=== PATIENT | male | born 1970 | race Hispanic/Latino ===

== ENCOUNTER 2017-11-06 20:52 | Emergency (ER) | payer BC | END 2017-11-06 22:23 | disposition home or self-care (01) | LOC: SCSER 20:52 | DX: G50.0 Trigeminal neuralgia (principal); K21.9 Gastro-esophageal reflux disease without esophagitis; Z79.899 Other long term (current) drug therapy | CPT/HCPCS: 99283 ==

== ENCOUNTER 2017-11-08 05:27 | Emergency (ER) | payer BC ==
[2017-11-08] MEDS ORDERED: Ondansetron HCl/PF 4 MG/2 ML Vial ONE (05:47)
[2017-11-08] MEDS ORDERED: Ketorolac Tromethamine 30 MG/ML VIAL ONE (06:17)
[2017-11-08] MEDS ORDERED: Morphine 5 MG/ML SYRINGE ONE (06:17)
[2017-11-08 06:19] LABS: ALT (SGPT) 78 U/L (8-55); AST (SGOT) 38 U/L (5-34); Albumin 4.6 g/dL (3.5-5.0); Alkaline Phosphatase 100 U/L (40-150); Anion Gap 18 mmol/L (10-20); BUN (Urea Nitrogen) 13 mg/dL (8.9-20.6); Bilirubin, Total 0.5 mg/dL (0.2-1.2); Calc. Creatinine Clearance 0 mL/min (70-130); Calcium 9.6 mg/dL (7.8-10.44); Carbon Dioxide 19 mmol/L (22-29); Chloride 100 mmol/L (98-107); Estimated GFR-MDRD 80; Globulin 3.5 g/dL (2.4-3.5); Glucose 131 mg/dL (70-105); Potassium 3.6 mmol/L (3.5-5.1); Protein, Total 8.1 g/dL (6.0-8.3); Sodium 133 mmol/L (136-145)
[2017-11-08 06:21] LABS: #Basophils 0.3 thou/uL (0.0-0.2); #Eosinphils 0.2 thou/uL (0.0-0.7); #Lymphocytes 4.3 thou/uL (1.20-3.40); #Neutrophils 6.4 thou/uL (1.40-6.50); %Basophils 2.1 % (0.0-1.0); %Eosinophils 1.4 % (0.0-10.0); %Lymphocytes 35.5 % (21.0-51.0); %Monocytes 8.3 % (0.0-10.0); %Neutrophils 52.7 % (42.0-75.0); Hemoglobin 17.3 g/dL (14.0-18.0); Mean Corpuscular HGB CONC 36.2 g/dL (32.0-36.0); Mean Corpuscular Hemoglobin 32.8 pg (27.0-31.0); Mean Corpuscular Volume 90.6 fl (80.0-94.0); Mean Platelet Volume 7.1 fL (7.4-10.4); Platelet Count 405 thou/uL (130-400); RBC Distribution Width 11.4 % (11.5-14.5); Red Blood Cell (RBC) Count 5.29 mill/uL (4.70-6.10); White Blood Cell (WBC) Count 12.1 thou/uL (4.8-10.8)
[2017-11-08] MEDS ORDERED: Gabapentin 100 MG CAP ONE (06:36)
--- NOTE | 2017-11-08 08:28 | CT ---
PRELIMINARY REPORT/[facility]/EMERGENTY AFTER-HOURS PROCEDURE CT Head Without Intravenous Contrast EXAM DATE/TIME: Exam ordered 11/08/2017 6:42 AM CLINICAL HISTORY: 47 years old, male; Pain; Other: Facial pain/drooping; Patient HX: Patient with history of trigeminal neuralgia with significant left sided facial pain that started yesterday afternoon and has remained constant. Patient has known trigeminal neuralgia with frequent flares over the past year. Patient recently seen by neurologist dr. Smith yesterday and had adjustment to medications of oxtella to ca rbazipime. Patient noted some improvement. Patient also has scheduled neurosurgical evaluation in the [facility] for gamma knife procedure to assist. No new neurological deficits. TECHNIQUE: Axial computed tomography images of the head/brain without intravenous contrast. COMPARISON: No relevant prior studies available. FINDINGS: Brain: Normal. No hemorrhage. No significant white matter disease. No edema. Ventricles: Normal. No ventriculomegaly. Bones/joints: Normal. No acute fracture. Soft tissues: Normal. Sinuses: Unremarkable as visualized. No acute sinusitis. Mastoid air cells: Unremarkable as visualized. No mastoid effusion. IMPRESSION: No acute intracranial hemorrhage. Thank you for allowing us to participate in the care of your patient. Dictated and Authenticated by: Devin Douglas MD 11/08/2017 7:10 AM Central Time ([place] & [place]) FINAL REPORT NONCONTRAST HEAD CT: HISTORY: Headache. COMPARISON: 11/29/12. TECHNIQUE: Noncontrast head CT is performed from the skull base to the skull vertex. FINDINGS: This report is in agreement with the preliminary report by [facility]. No acute intracranial process. POS: [facility]
== END 2017-11-08 07:35 | disposition home or self-care (01) ==
LOC: SCSER 05:27
DX: G50.0 Trigeminal neuralgia (principal); R94.5 Abnormal results of liver function studies; K21.9 Gastro-esophageal reflux disease without esophagitis; F32.9 Major depressive disorder, single episode, unspecified; Z79.899 Other long term (current) drug therapy
CPT/HCPCS: 70450; 80053; 83690; 85025; 93005; 96361; 96374; 96375; J2270; J1885; J2405

== ENCOUNTER 2017-11-08 09:40 | Emergency (ER) | payer BC ==
[2017-11-08] MEDS ORDERED: Morphine 5 MG/ML SYRINGE ONE (10:40)
[2017-11-08] MEDS ORDERED: Ondansetron HCl/PF 4 MG/2 ML Vial ONE (11:16)
[2017-11-08] MEDS ORDERED: methylPREDNISolone Sod Succ/PF 125 MG/2 ML VIAL ONE (11:16)
[2017-11-08] MEDS ORDERED: Sodium Chloride 0.9% 0 ML ONE (11:30)
== END 2017-11-08 12:44 | disposition home or self-care (01) ==
LOC: SCSER 09:40
DX: G50.0 Trigeminal neuralgia (principal); K21.9 Gastro-esophageal reflux disease without esophagitis; F32.9 Major depressive disorder, single episode, unspecified; Z79.899 Other long term (current) drug therapy
CPT/HCPCS: 96365; 96375; J2270; J1165; J2405; J2930; J7050

== ENCOUNTER 2017-11-08 12:49 | Outpatient (CLI) | payer BC ==
--- NOTE | 2017-11-08 15:02 | MRI ---
BRAIN MRI WITH AND WITHOUT CONTRAST: HISTORY: Trigeminal neuralgia. Left facial pain, starting yesterday afternoon. The pain is constant. The hailey redding has known trigeminal neuralgia with frequent flares over the past year. COMPARISON: None. TECHNIQUE: Brain MRI is performed utilizing cranial nerve protocol. Multisequential, multiplanar imaging is per formed. FINDINGS: The calvarium has a normal T1 marrow signal intensity. Midline parenchymal structures are unremarkab le. No parenchymal mass, mass effect, or midline shift. Brain volume is age appropriate. Cortical hoff- white matter differentiation is preserved. Ventricles and sulci are patent and symmetric. Central arterial flow voids are maintained. Absent restricted diffusion. No pathologic enhancement of the brain parenchyma. Mucous retention cyst in the right maxillary sinus. Remaining sinuses and mastoid air cells are adeq uately aerated. Pituitary gland is unremarkable. Visualized optic nerves are unremarkable. There is symmetric signal intensity of the 7th/8th cranial nerve complexes. No abnormal enhancement in either cranial nerve complex. No abnormal enhancement in either internal auditory canal or inner ear structure. There is appropriate signal intensity in the 5th cranial nerve complexes. No abnorma l enhancement. IMPRESSION: 1. Unremarkable MRI of the 5th cranial nerve. 2. Unremarkable MRI of the internal auditory canal and inner ear structures. 3. No abnormal enhancement of the brain parenchyma. No restricted diffusion. No infarct. POS: [facility]
== END 2017-11-08 12:50 | disposition home or self-care (01) ==
LOC: SCSMRI 12:49
PROVIDERS: ATTEND Family Medicine
DX: G50.0 Trigeminal neuralgia (principal)
CPT/HCPCS: 70553

== ENCOUNTER 2017-11-11 10:58 | Emergency (ER) | payer BC ==
[2017-11-11] MEDS ORDERED: Promethazine HCl 25 MG/ML VIAL ONE (11:46)
[2017-11-11] MEDS ORDERED: Lorazepam 2 MG/ML VIAL ONE (11:59)
[2017-11-11] MEDS ORDERED: Morphine 5 MG/ML SYRINGE ONE (12:00)
== END 2017-11-11 12:54 | disposition home or self-care (01) ==
LOC: SCSER 10:58
DX: G50.0 Trigeminal neuralgia (principal); K21.9 Gastro-esophageal reflux disease without esophagitis; F32.9 Major depressive disorder, single episode, unspecified; Z79.899 Other long term (current) drug therapy
CPT/HCPCS: 96365; 96375; J2270; J2060; J2550

== ENCOUNTER 2017-11-11 17:51 | Inpatient (IN) | payer BC ==
[2017-11-11] MEDS ORDERED: Morphine 5 MG/ML SYRINGE ONE (18:11)
[2017-11-11] MEDS ORDERED: Ondansetron HCl/PF 4 MG/2 ML Vial ONE (18:11)
[2017-11-11] MEDS ORDERED: Sodium Chloride 0.9% 1,000 ML IV SCH (20:39)
[2017-11-11 20:51] VITALS: BMI 30.7
[2017-11-12] MEDS ORDERED: carBAMazepine 200 MG TAB PO SCH ×2 (08:00→09:00)
[2017-11-12] MEDS: Pregabalin 75 MG CAP PO SCH ×2 (08:32→20:28)
--- NOTE | 2017-11-12 08:54 | HP ---
CHIEF COMPLAINT: Intractable pain secondary to trigeminal neuralgia. HISTORY OF PRESENT ILLNESS: This is a 47-year-old gentleman with a long history of trigeminal neural tiffany that had been previously controlled with carbamazepine. He has been followed by Dr. Smith as a n outpatient and had been doing well with on and off episodes of exacerbations likely due to stress. The patient was seen in my office about 2-3 weeks ago with worsening pain. His medications were inc reased and then he had a followup with Dr. Smith who again adjusted his medications and recommended further procedures if his pain was not controlled. His pain continued to worsen. He states that he has had 4-5 presentations to the emergency department for severe intractable pain. He is now unable to move his mouth and the left side of his face without causing increased pain. He has had poor p.o . intake, poor fluid intake secondary to the pain with movement of his mouth. The patient states walter t the pain comes and "charges" that come and go and again worsened by movement and touching his lip. His pain moves from the left side of his mouth and teeth to his left eye and left ear as well. PAST MEDICAL HISTORY: History of trigeminal nerve pain on the left, gastroesophageal reflux disease, severe. MEDICATIONS: Carbamazepine 200 mg 1.5 tabs b.i.d., gabapentin 900 mg b.i.d., Protonix 40 mg daily, s ertraline 100 mg daily, Dilantin 300 mg at bedtime, Tylenol No. 3 p.r.n. PAST SURGICAL HISTORY: Cholecystectomy, EGD. PSYCHIATRIC HISTORY: History of depression and anxiety. SOCIAL HISTORY: No smoking. Rare alcohol use. He works for a [employer]. FAMILY HISTORY: Noncontributory. REVIEW OF SYSTEMS: As per the history of present illness. GENERAL: He denies any recent fevers, chills or recent illness. HEENT: Positive pain as per the history of present illness. No recent illness. No cough, congestio n, runny nose. CARDIAC: Denies chest pain, shortness of breath or palpitations. PULMONARY: Denies cough or hemoptysis. GASTROINTESTINAL: Poor p.o. intake. Denies nausea, vomiting, some diarrhea. GENITOURINARY: No dysuria or hematuria. NEUROLOGIC: As per the history of present illness. No history of seizure or syncope. PHYSICAL EXAMINATION: VITAL SIGNS: Temperature 97.6, pulse is 67, respirations 16, blood pressure 143/83, pulse ox is 98% on room air. GENERAL: He is awake and alert, in no acute distress, resting comfortably until he starts talking or moving his mouth then he grimaces with pain. SKIN: With no rashes. HEENT: Extraocular muscles are intact. Throat unable to examine because he cannot open his mouth. NECK: Supple. HEART: Regular rate and rhythm. LUNGS: Clear. ABDOMEN: Soft. EXTREMITIES: With no edema. NEUROLOGIC: Cranial nerves II-XII are intact. He has some movement of his left cheek, but tendernes s to palpation. LABORATORY AND X-RAY FINDINGS: Laboratory data is pending from this morning. Recent labs from 11/08 were reviewed. ASSESSMENT AND PLAN: 1. This is a 47-year-old gentleman with severe and uncontrolled trigeminal neuralgia, now with acute exacerbation, which has been progressively worsening and poor p.o. intake. 1. Agree with admission . Continue IV fluids. We will start supplemental diet. 2. Trigeminal neuralgia. I will change gabapentin to Lyrica if okay with Neurology. Consult Dr. Kaye ordonez for further evaluation and possible further procedures.
[2017-11-12] MEDS ORDERED: OXcarbazepine 300 MG TAB PO SCH (09:00)
[2017-11-12] MEDS ORDERED: OXcarbazepine 600 MG TAB PO SCH (09:00)
[2017-11-12] MEDS ORDERED: Non-Formulary Item 1 EACH (Sertraline Hcl [Sertraline Hcl] 50 MG) PO SCH (09:00)
[2017-11-12] MEDS ORDERED: CARBAMAZEPINE PO SCH (09:00)
[2017-11-12] MEDS ORDERED: Gabapentin 300 MG CAP PO SCH ×2 (09:00)
[2017-11-12] MEDS: Ondansetron ODT 4 MG TAB PO PRN ×2 (14:07→20:29)
[2017-11-12] MEDS: Acetaminophen 325 MG TAB PO PRN (16:56)
[2017-11-12] MEDS: Morphine 10 MG/ML VIAL SLOW IVP PRN (17:01)
[2017-11-13] MEDS: Acetaminophen 325 MG TAB PO PRN (04:14)
[2017-11-13 04:51] LABS: #Basophils 0.1 thou/uL (0.0-0.2); #Eosinphils 0.1 thou/uL (0.0-0.7); #Lymphocytes 1.9 thou/uL (1.20-3.40); #Monocytes 0.9 thou/uL (0.11-0.59); #Neutrophils 5.2 thou/uL (1.40-6.50); %Basophils 1.1 % (0.0-1.0); %Eosinophils 1.8 % (0.0-10.0); %Neutrophils 63.1 % (42.0-75.0); Hemoglobin 16.9 g/dL (14.0-18.0); Mean Corpuscular HGB CONC 34.9 g/dL (32.0-36.0); Mean Corpuscular Hemoglobin 32.9 pg (27.0-31.0); Mean Corpuscular Volume 94.4 fl (80.0-94.0); Mean Platelet Volume 6.8 fL (7.4-10.4); Platelet Count 302 thou/uL (130-400); RBC Distribution Width 11.9 % (11.5-14.5); Red Blood Cell (RBC) Count 5.14 mill/uL (4.70-6.10); White Blood Cell (WBC) Count 8.3 thou/uL (4.8-10.8)
[2017-11-13 05:12] LABS: ALT (SGPT) 48 U/L (8-55); AST (SGOT) 23 U/L (5-34); Albumin 4.1 g/dL (3.5-5.0); Alkaline Phosphatase 113 U/L (40-150); Anion Gap 12 mmol/L (10-20); BUN (Urea Nitrogen) 10 mg/dL (8.9-20.6); Bilirubin, Total 0.3 mg/dL (0.2-1.2); Calc. Creatinine Clearance 111 mL/min (70-130); Calcium 9.5 mg/dL (7.8-10.44); Carbon Dioxide 26 mmol/L (22-29); Chloride 102 mmol/L (98-107); Estimated GFR-MDRD 78; Globulin 3.2 g/dL (2.4-3.5); Glucose 77 mg/dL (70-105); Potassium 4.4 mmol/L (3.5-5.1); Protein, Total 7.3 g/dL (6.0-8.3); Sodium 136 mmol/L (136-145)
[2017-11-13] MEDS: Pregabalin 75 MG CAP PO SCH (07:22)
[2017-11-13] MEDS: Morphine 10 MG/ML VIAL SLOW IVP PRN ×2 (07:27→21:59)
--- NOTE | 2017-11-13 08:45 | PRG ---
DATE OF SERVICE: 11/13/2017 SUBJECTIVE: The patient continues to have episodic severe pain in his left side of his face. He has had some improvement with the morphine, minimal improvement with changing from gabapentin to Lyrica. Dr. Smith put a consult in for Neurosurgery who at this time has been unable to see the patient. The patient denies fevers or chills. He continues to have poor p.o. intake. He is able to put water in his mouth with a syringe, but has pain once he starts swallowing and moving his mouth. He is not been able to tolerate a diet. He is unable to chew his food. PHYSICAL EXAMINATION: VITAL SIGNS: Temperature 97.6, pulse is 67, respirations 16, blood pressure 141 /90, pulse ox 97% on room air. GENERAL: He is lethargic after receiving a dose of morphine this morning. No signs of distress, but very uncomfortable in bed and unable to speak due to pain when he moves his mouth. HEENT: Mucosa is moist. HEART: Regular rate and rhythm. LUNGS: Clear. LABORATORY DATA: Reviewed. Sodium 136, potassium 4.4, chloride 102, CO2 of 26 , BUN and creatinine are 10 and 1.02. Serum glucose is 77, albumin of 4.1. White blood cell count 8,300, hemoglobin and hematocrit are 16.9 and 48.5, platelets of 302. Sed rate was 4. ASSESSMENT AND PLAN: This is a 47-year-old gentleman with a history of persistent trigeminal neuralgia, now with severe intractable pain, difficult to control with multiple medications including Lyrica, carbamazepine and phenytoin. Await input from Dr. Smith and Neurosurgery for further procedures , potential transfer to [place] if Gamma Knife procedure is the best option for him at this point. I will discuss with Dr. Smith and Dr. Schmidt for further plan. 1. Poor p.o. intake. We will continue IV fluids as well as supplemental diet. MTDD
[2017-11-13] MEDS ORDERED: Pregabalin 50 MG CAP PO SCH ×2 (09:00→21:00)
[2017-11-13] MEDS: 1/2 NS w/KCL 20 mEq 1,000 ML IV SCH ×3 (09:53→21:23)
[2017-11-13] MEDS ORDERED: Ketorolac Tromethamine 30 MG/ML VIAL IVP SCH (11:14)
[2017-11-13] MEDS: Ondansetron HCl/PF 4 MG/2 ML Vial SLOW IVP PRN (11:33)
[2017-11-13] MEDS ORDERED: carBAMazepine 200 MG TAB PO SCH (12:00)
[2017-11-13] MEDS: Ketorolac Tromethamine 30 MG/ML VIAL IVP PRN (18:50)
[2017-11-13] MEDS: carBAMazepine 200 MG TAB PO SCH (21:47)
[2017-11-14] MEDS: Ketorolac Tromethamine 30 MG/ML VIAL IVP PRN ×3 (00:59→23:37)
[2017-11-14] MEDS: Morphine 10 MG/ML VIAL SLOW IVP PRN (05:33)
[2017-11-14] MEDS: 1/2 NS w/KCL 20 mEq 1,000 ML IV SCH (07:35)
[2017-11-14] MEDS ORDERED: Lorazepam 2 MG/ML VIAL SLOW IVP PRN (08:30)
[2017-11-14] MEDS: D5 1/2 NS w/10 mEq KCl 1,000 ML/1,000 ML BAG IV SCH ×3 (09:26→16:38)
[2017-11-14] MEDS: DULoxetine 60 MG CAP PO SCH ×2 (09:41→11:52)
[2017-11-14] MEDS: Pantoprazole 40 MG VIAL IVP SCH (09:42)
[2017-11-14] MEDS: carBAMazepine 200 MG TAB PO SCH ×3 (09:42→22:00)
[2017-11-14] MEDS: Morphine 4 MG/ML VIAL SLOW IVP PRN ×2 (11:49→18:19)
[2017-11-14] MEDS ORDERED: Pregabalin 75 MG CAP PO SCH (21:00)
[2017-11-14] MEDS: Ondansetron HCl/PF 4 MG/2 ML Vial SLOW IVP PRN (22:51)
[2017-11-15] MEDS: D5 1/2 NS w/10 mEq KCl 1,000 ML/1,000 ML BAG IV SCH ×4 (01:50→19:31)
[2017-11-15] MEDS: Morphine 10 MG/ML VIAL SLOW IVP PRN ×3 (03:26→18:07)
[2017-11-15 05:27] LABS: Anion Gap 12 mmol/L (10-20); BUN (Urea Nitrogen) 7 mg/dL (8.9-20.6); Calc. Creatinine Clearance 142 mL/min (70-130); Calcium 8.6 mg/dL (7.8-10.44); Carbon Dioxide 23 mmol/L (22-29); Chloride 103 mmol/L (98-107); Estimated GFR-MDRD Greater than 90; Glucose 142 mg/dL (70-105); Potassium 3.8 mmol/L (3.5-5.1); Sodium 134 mmol/L (136-145)
--- NOTE | 2017-11-15 08:19 | PRG ---
DATE OF SERVICE: 11/14/2017 SUBJECTIVE: The patient continues to have a severe episodic pain on the left side of his face. He h as had minimal improvement with anticonvulsant medications despite trying to increase the dosages. Escobar pinon has had a short relief with IV morphine. It has been discussed with Neurosurgery as far as the syd n. The patient continues to have a hard time eating or drinking due to it stimulating the pain in hi s left cheek. He continues to have poor p.o. intake. PHYSICAL EXAMINATION: VITAL SIGNS: Temperature 97.6, pulse of 73, respirations 16, blood pressure 110/69, pulse ox is 94% on room air. GENERAL: He is awake and alert. He is uncomfortable, but resting in bed. SKIN: With no rash. Unable to voice much of a voice. HEENT: Mucosa is moist. NECK: Supple. HEART: Regular rate and rhythm. LUNGS: Clear. ASSESSMENT AND PLAN: This is a 47-year-old gentleman with intractable pain secondary to trigeminal n euralgia, difficult to control with multiple medications. PLAN: I had a discussion with Dr. Schmidt who plans to see the patient as an outpatient on 09/2017 to discuss surgical options. He did not feel that inpatient evaluation was necessary at this time except for further pain management. I reviewed labs. 1. We will continue to increase anticonvulsant dosages to achieve better pain relief. 2. Analgesia. We will continue IV morphine and encouraged the patient to try to eat or drink during the short episodes of pain relief. 3. Poor p.o. intake. We will continue IV fluid rehydration at this time.
--- NOTE | 2017-11-15 08:22 | PRG ---
DATE OF SERVICE: 11/15/2017 SUBJECTIVE: The patient continues to have persistent pain, having short periods of relief with IV mo rphine. No improvement with increasing Lyrica, maximizing Tegretol dosage or switching Dilantin to I V. The patient has not had any more relief with the IV Toradol as well and is becoming more frustrat ed. is concerned that he is becoming more depressed as well. OBJECTIVE: VITAL SIGNS: Temperature 97.6, pulse of 76, respirations 16, pulse ox 100% on room air, blood pressu re 139/77. GENERAL: He is awake and alert, in no acute distress, not having as many spastic episodes of pain in his left face during this visit. SKIN: With no rash. HEART: Regular rate and rhythm. LUNGS: Clear. NEUROLOGIC: Cranial nerves II-XII are intact. Strength is 5/5 bilaterally. LABORATORY DATA: Sodium 134, potassium 3.8, chloride 103, CO2 23, BUN and creatinine 7 and 0.8. Ser um glucose of 142. ASSESSMENT AND PLAN: This is a 47-year-old gentleman with intractable and severe pain secondary to p ersistent trigeminal neuralgia. 1. We will switch his medications and discontinue Lyrica and give a trial of Lamictal p.o. We will c onsult pain management for further evaluation for better pain relief. 2. Poor p.o. intake. We will continue IV fluids and supplement diet with Ensure liquid. 3. Disposition. The patient has an appointment with Dr. Schmidt on 11/18/2017 for outpatient evaluati on for surgical management, likely to keep him here in the hospital for pain management until he can swallow and drink with plans to discharge home on Saturday for his followup with Dr. Schmidt.
[2017-11-15] MEDS: Ondansetron HCl/PF 4 MG/2 ML Vial SLOW IVP PRN ×2 (08:44→15:55)
[2017-11-15] MEDS: Pantoprazole 40 MG VIAL IVP SCH (09:55)
[2017-11-15] MEDS: Enoxaparin Sodium 40 MG/0.4 ML SYRINGE SC SCH (09:59)
[2017-11-15] MEDS: carBAMazepine 200 MG TAB PO SCH ×2 (10:40→21:00)
[2017-11-15] MEDS: lamoTRIgine 25 MG TAB PO SCH ×2 (10:42→21:01)
[2017-11-15] MEDS: Baclofen 10 MG TAB PO SCH ×2 (10:42→21:00)
[2017-11-15] MEDS: DULoxetine 60 MG CAP PO SCH (10:43)
[2017-11-15] MEDS ORDERED: HYDROcodone/Acetaminophen 5/325 mg Tablet PO PRN (17:30)
[2017-11-16] MEDS: Morphine 10 MG/ML VIAL SLOW IVP PRN ×3 (00:17→12:50)
[2017-11-16] MEDS: D5 1/2 NS w/10 mEq KCl 1,000 ML/1,000 ML BAG IV SCH ×3 (04:13→18:42)
[2017-11-16 05:53] LABS: ALT (SGPT) 138 U/L (8-55); AST (SGOT) 68 U/L (5-34); Albumin 3.6 g/dL (3.5-5.0); Alkaline Phosphatase 178 U/L (40-150); Anion Gap 9 mmol/L (10-20); BUN (Urea Nitrogen) Less than 4 mg/dL (8.9-20.6); Bilirubin, Total 0.3 mg/dL (0.2-1.2); Calc. Creatinine Clearance 122 mL/min (70-130); Calcium 8.8 mg/dL (7.8-10.44); Carbon Dioxide 28 mmol/L (22-29); Chloride 103 mmol/L (98-107); Dilantin 5.3 ug/mL (10.0-20.0); Estimated GFR-MDRD 87; Globulin 2.9 g/dL (2.4-3.5); Glucose 119 mg/dL (70-105); Potassium 3.9 mmol/L (3.5-5.1); Protein, Total 6.5 g/dL (6.0-8.3); Sodium 136 mmol/L (136-145)
--- NOTE | 2017-11-16 08:10 | CON ---
DATE OF CONSULTATION: 11/16/2017 REFERRING PHYSICIAN: Dr. Matt Waller. CHIEF COMPLAINT/REASON FOR CONSULTATION: Intractable trigeminal neuralgia. HISTORY OF PRESENT ILLNESS: This is a 47-year-old gentleman with a long history of trigeminal neural tiffany dating back 1 year, previously had been controlled fairly well on carbamazepine, but over the las t several months, his pain has increased dramatically and his exacerbations have become more frequent and severe, limiting or even eliminating his p.o. intake. He was admitted after severe exacerbation and no oral intake of fluids or food. He has been in the hospital several days. He has tried numer ous medications including Tegretol, gabapentin, Lyrica, Dilantin. He was started on Lamictal and delia lofen yesterday. Additionally, he is receiving 8 mg of IV morphine, providing some benefit. Overall , medications more recently have been non-efficacious, and his pain continues to worsen and his p.o. intake is very limited. The trigger areas are within the mouth, and any movement of his jaw or mouth exacerbate the pain. His trigger areas also involve touching his lips. Based on his description, i t appears to involve primarily V2 but possibly V3 as well. PAST MEDICAL HISTORY: History of trigeminal neuralgia and gastroesophageal reflux that has been shakeel re. Denies any ulcer history. CURRENT MEDICATIONS: Include baclofen 10 mg p.o. b.i.d. that was started yesterday; Tegretol 400 mg b.i.d.; Cymbalta 60 mg daily; Lovenox 40 mg subcu; Dilantin IV; and Lamictal, which was started 2 day s ago 25 mg p.o. b.i.d. He has Ativan 1 mg p.r.n. anxiety, morphine 8 mg IV q.6 hours, Zofran for na usea, Protonix 40 mg daily. Note that Lyrica was used, but has been discontinued and Toradol was als o being used, nonefficacious, and was also discontinued. PAST SURGICAL HISTORY: Cholecystectomy, EGD. PSYCHIATRIC HISTORY: Depression and anxiety, but primarily around his trigeminal neuralgia and sever e pain. SOCIAL HISTORY: Nonsmoker. No alcohol or drug abuse issues. He is employed FAMILY HISTORY: Noncontributory. REVIEW OF SYSTEMS: Negative with the exception of what is mentioned in the HPI. PHYSICAL EXAMINATION: GENERAL: The patient is alert and oriented. Pupils are pinpoint, identifying recent administration of the morphine for his pain. He will not speak or move his mouth, as this is a trigger. History wa s obtained from him as well as his . SKIN: There are no rashes on the face. HEENT: Extraocular muscles are intact. Pupils are equal. Eye movements are intact. No evidence of any facial deficits. Could not examine the intraoral region. He is unable to open his mouth and wi ll not allow me to touch his face, as there are obvious trigger areas around the lip and perioral reg ion on the left side. NECK: Supple. There is no rigidity. HEART: Regular. LUNGS: Clear. No chest wall tenderness. ABDOMINAL EXAM: Benign and soft, no epigastric pain. EXTREMITIES: Without edema. NEUROLOGIC EXAM: Cranial nerves are intact and he has no deficits involving the left side of his fac e or perioral region. LABORATORY AND X-RAY FINDINGS: The MRI scan was reviewed. No abnormalities noted, in particular no vascular abnormalities noted around the fifth cranial nerve. ASSESSMENT AND PLAN: Trigeminal neuralgia. Patient obviously failing medications including Tegretol , Dilantin, Lyrica, gabapentin, recently started baclofen b.i.d., and Lamictal, unsure if this has of fered any benefit, but if so, it has been very little, as he is still unable to offer any oral intake . Unfortunately, have little to add in this scenario. We will try some low-dose methadone that tends t o be efficacious or at least more efficacious for neuropathic pain. This patient will require surgic al treatment and/or ablation of the trigeminal nerve and surgical consultation is pending for Saturday.
[2017-11-16] MEDS ORDERED: Lorazepam 2 MG/ML VIAL SLOW IVP PRN (08:26)
[2017-11-16] MEDS: METHadone HCl 10 MG TAB PO SCH ×3 (09:51→20:38)
[2017-11-16] MEDS: lamoTRIgine 25 MG TAB PO SCH ×2 (09:53→20:37)
[2017-11-16] MEDS: Baclofen 10 MG TAB PO SCH ×2 (09:54→20:37)
[2017-11-16] MEDS: carBAMazepine 200 MG TAB PO SCH ×2 (09:54→20:37)
[2017-11-16] MEDS: Enoxaparin Sodium 40 MG/0.4 ML SYRINGE SC SCH (09:54)
[2017-11-16] MEDS: Pantoprazole 40 MG VIAL IVP SCH (09:56)
[2017-11-16] MEDS: DULoxetine 60 MG CAP PO SCH (13:39)
[2017-11-16] MEDS: Ondansetron HCl/PF 4 MG/2 ML Vial SLOW IVP PRN (16:16)
[2017-11-17] MEDS: D5 1/2 NS w/10 mEq KCl 1,000 ML/1,000 ML BAG IV SCH ×3 (00:45→18:27)
[2017-11-17 05:36] LABS: Carbamazepine-Tegretol 4.8 ug/mL (4.0-12.0)
[2017-11-17] MEDS: Baclofen 10 MG TAB PO SCH ×2 (08:07→20:24)
[2017-11-17] MEDS: carBAMazepine 200 MG TAB PO SCH ×2 (08:07→20:23)
[2017-11-17] MEDS: DULoxetine 60 MG CAP PO SCH (08:07)
[2017-11-17] MEDS: Enoxaparin Sodium 40 MG/0.4 ML SYRINGE SC SCH (08:07)
[2017-11-17] MEDS: Ondansetron ODT 4 MG TAB PO PRN ×2 (08:08→16:15)
[2017-11-17] MEDS: lamoTRIgine 25 MG TAB PO SCH ×2 (08:08→20:24)
[2017-11-17] MEDS: METHadone HCl 10 MG TAB PO SCH ×3 (08:08→20:23)
[2017-11-17] MEDS: Pantoprazole 40 MG VIAL IVP SCH (09:40)
[2017-11-17] MEDS ORDERED: Mag-Al Plus 1200 MG/1200 MG/120 MG/30 ML UDCUP PO SCH (18:15)
[2017-11-18] MEDS: D5 1/2 NS w/10 mEq KCl 1,000 ML/1,000 ML BAG IV SCH ×3 (03:35→17:16)
[2017-11-18] MEDS: DULoxetine 60 MG CAP PO SCH (08:11)
[2017-11-18] MEDS: carBAMazepine 200 MG TAB PO SCH ×2 (08:11→20:07)
[2017-11-18] MEDS: Baclofen 10 MG TAB PO SCH ×2 (08:11→20:07)
[2017-11-18] MEDS: lamoTRIgine 25 MG TAB PO SCH ×2 (08:12→20:06)
[2017-11-18] MEDS: Enoxaparin Sodium 40 MG/0.4 ML SYRINGE SC SCH (08:12)
[2017-11-18] MEDS: METHadone HCl 10 MG TAB PO SCH ×3 (08:12→20:07)
[2017-11-18] MEDS: Pantoprazole 40 MG VIAL IVP SCH (08:14)
[2017-11-18] MEDS: Ondansetron ODT 4 MG TAB PO PRN ×2 (08:15→15:30)
--- NOTE | 2017-11-18 08:26 | PRG ---
DATE OF SERVICE: 11/18/2017 SUBJECTIVE: The patient has had improvement of his pain with the current regimen including Tegretol, Cymbalta, Dilantin, Lamictal, and p.r.n., baclofen as well as methadone per Dr. Leavitt. Still unable to eat or drink very much. He is able to swallow his meds now and is more awake and alert and comfortable at rest. Events of the weekend were noted. OBJECTIVE: VITAL SIGNS: Temperature 97.4, pulse of 81, respirations 16, blood pressure 121/77, pulse ox is 96% on room air. GENERAL: He is awake and alert. He appears more comfortable, no longer having frequent episodic lul ns of his face. He is able to have more conversation. HEENT: Mucosa is moist. NECK: Supple. HEART: Regular rate and rhythm. LUNGS: Clear. EXTREMITIES: With no edema. LABORATORY DATA: Reviewed. AST and ALT did rise on 11/16/2017, alkaline phosphatase up to 178 from 113, Dilantin and Tegretol levels were normal. ASSESSMENT AND PLAN: This is a 47-year-old gentleman with intractable trigeminal neuralgia failing m edical management due to persistent pain and inability to eat and drink. 1. We will continue his current regimen as he has had improvement of his pain. 2. Poor p.o. intake. We will continue IV fluids and supplement as tolerated. 3. Consultation with Dr. Schmidt to see here in the hospital today prior to discharge home. 4. Transaminitis. We will check abdominal ultrasound to rule out gallstone. 5. Further plan per Neurosurgery.
[2017-11-18 08:35] LABS: ALT (SGPT) 127 U/L (8-55); AST (SGOT) 67 U/L (5-34); Albumin 3.7 g/dL (3.5-5.0); Alkaline Phosphatase 172 U/L (40-150); Anion Gap 10 mmol/L (10-20); BUN (Urea Nitrogen) 4 mg/dL (8.9-20.6); Bilirubin, Total 0.3 mg/dL (0.2-1.2); Calc. Creatinine Clearance 129 mL/min (70-130); Calcium 9.1 mg/dL (7.8-10.44); Carbon Dioxide 28 mmol/L (22-29); Chloride 103 mmol/L (98-107); Estimated GFR-MDRD Greater than 90; Glucose 105 mg/dL (70-105); Potassium 3.8 mmol/L (3.5-5.1); Protein, Total 6.7 g/dL (6.0-8.3); Sodium 137 mmol/L (136-145)
--- NOTE | 2017-11-18 09:23 | PRG ---
DATE OF SERVICE: 11/18/2017 SUBJECTIVE: Patient was evaluated today, approximately 48 hours post beginning methadone 5 mg t.i.d. for intractable pain secondary to trigeminal neuralgia, left side of the face. The methadone does s eem to have offered some benefit. He is able to talk this morning. Rates his pain at a 6. He has h ad no severe exacerbations in the last 24-48 hours. I did explain to him that the methadone was mean t to be a temporary reprieve with his pain, pending neurosurgical consultation for more definitive tr eatment. He has had no complications or side effects from the methadone. OBJECTIVE: GENERAL: On examination, he is alert, oriented, much more comfortable than I saw him the other day. He is able to converse with me. HEAD AND NECK EXAM: I did not test the trigger areas, which are primarily perioral. He is able to t haroldo his medications by mouth and has some p.o. intake now. Examination is otherwise unchanged. IMPRESSION: Trigeminal neuralgia, failing multiple medications as outlined in previous notes. Two d ays ago, I started methadone 5 mg t.i.d. in the hopes for improved neuropathic pain. His analgesia h as improved. Recommend continuing methadone 5 mg t.i.d. I do not intend for this to be a long-term medicine, but rather to provide analgesia until more definitive neurosurgical or ablative treatment c an be offered. Neurosurgical consultation is apparently due today. We will follow up.
--- NOTE | 2017-11-18 09:31 | ULT ---
ABDOMINAL ULTRASOUND: HISTORY: Elevated LFTs. FINDINGS: Real-time images of the upper abdomen demonstrate the gallbladder to have been removed. The common d uct is 3 mm. Liver parenchyma is of increased echogenicity. It measures 14 cm in length. Technolog ist reports a negative ultrasound May's sign. The spleen measures 8 cm in length. Right and left kidneys are normal in size and not obstructed. Pancreas region is partially obscured. Abdominal ao rta and IVC regions are normal. IMPRESSION: 1. Postop cholecystectomy change. 2. Fatty changes of the liver. POS: [facility]
[2017-11-18] MEDS: Acetaminophen 325 MG TAB PO PRN (21:11)
[2017-11-19] MEDS: D5 1/2 NS w/10 mEq KCl 1,000 ML/1,000 ML BAG IV SCH ×3 (01:40→16:50)
[2017-11-19 06:15] LABS: Band 7 % (5-11); Eosinophils 8 % (0-10); Hemoglobin 14.7 g/dL (14.0-18.0); Lymphocytes 28 % (21-51); MDiff Complete? YES; Macrocytosis SLIGHT = 6-15 cells (100X) (0-5/hpf); Mean Corpuscular HGB CONC 34.2 g/dL (32.0-36.0); Mean Corpuscular Hemoglobin 32.5 pg (27.0-31.0); Mean Corpuscular Volume 95.1 fl (80.0-94.0); Mean Platelet Volume 7.4 fL (7.4-10.4); Monocytes 15 % (0-10); Neutrophil 41 % (42-75); PLT Morphology Comment Appears Adequate; Platelet Count 237 thou/uL (130-400); Reactive Lymphocytes 1 % (0-10); Red Blood Cell (RBC) Count 4.53 mill/uL (4.70-6.10); White Blood Cell (WBC) Count 4.6 thou/uL (4.8-10.8)
--- NOTE | 2017-11-19 07:50 | PRG ---
DATE OF SERVICE: 11/19/2017 SUBJECTIVE: The patient is stable relative to his examination yesterday. He is able to speak, but s till unable to have any meaningful oral intake. His lack of oral intake is due to trigger areas abou t the perioral region, especially on the left side triggering his V2 trigeminal neuralgia. Neurosurg re did evaluate him yesterday. Final plan for his neuralgia is pending. Apparently Gamma Knife jeff luann balloon dilatation are the current options being entertained. CURRENT MEDICATIONS: Include Methadone 5 mg t.i.d., baclofen, Lamictal, Dilantin, and Tegretol. OBJECTIVE: GENERAL: The patient was asleep upon entering the room, easily arousable. He is not sedated, nonsom nolent, easily arousable and in no acute distress, oriented. VITAL SIGNS: He is afebrile. His blood pressure is 120/70. HEAD AND NECK: Unremarkable. HEENT: Mucosal membranes are moist. I did not touch his face, do not want to trigger his pain. NECK: Supple. HEART AND LUNGS: Regular and clear. EXTREMITIES: Unchanged. IMPRESSION AND PLAN: A 47-year-old gentleman with intractable trigeminal neuralgia appears to be bud jose V2, very severe pain with very limited oral intake due to trigger areas in the perioral region . 1. Simplify his medication regimen and hope to be able to discontinue some of his medications. We w ill begin with baclofen as I doubt this is adding much benefit. 2. Poor p.o. intake due to his trigeminal neuralgia and perioral trigger points, continue IV fluids. 3. Await Neurosurgery.
[2017-11-19 08:28] LABS: ALT (SGPT) 111 U/L (8-55); AST (SGOT) 47 U/L (5-34); Albumin 3.5 g/dL (3.5-5.0); Alkaline Phosphatase 155 U/L (40-150); Bilirubin, Direct 0.2 mg/dL (0.1-0.3); Bilirubin, Total 0.3 mg/dL (0.2-1.2); Protein, Total 6.4 g/dL (6.0-8.3)
[2017-11-19] MEDS: Pantoprazole 40 MG VIAL IVP SCH (08:29)
[2017-11-19] MEDS: carBAMazepine 200 MG TAB PO SCH ×2 (08:29→21:54)
[2017-11-19] MEDS: DULoxetine 60 MG CAP PO SCH (08:29)
[2017-11-19] MEDS: lamoTRIgine 25 MG TAB PO SCH ×2 (08:30→21:52)
[2017-11-19] MEDS: METHadone HCl 10 MG TAB PO SCH ×3 (08:30→21:52)
[2017-11-19] MEDS: Enoxaparin Sodium 40 MG/0.4 ML SYRINGE SC SCH (08:31)
--- NOTE | 2017-11-19 08:52 | PRG ---
DATE OF SERVICE: 11/19/2017 SUBJECTIVE: The patient continues to have some improved pain. He is not having as many episodes of shocking pain in his left side of his face. He is still unable to eat or drink or swallow at this ti me. He can swallow his medications and he is more awake and alert and comfortable. I had a long discussion with Dr. Schmidt yesterday and unfortunately is not able to have any procedures for the trigeminal neuralgia here locally. OBJECTIVE: VITAL SIGNS: Temperature 97.5, pulse of 77, respirations 18, blood pressure 129/84, pulse ox is 94% on room air. GENERAL: He is awake and alert, comfortable. HEENT: Mucosa is moist. NECK: Supple. HEART: Regular rate and rhythm. LUNGS: Clear. ABDOMEN: Positive bowel sounds, soft, nontender, nondistended. No hepatosplenomegaly. EXTREMITIES: No edema. LABORATORY DATA AND X-RAY FINDINGS: White blood cell count 4,600, hemoglobin and hematocrit are 14.7 and 43.1, platelets of 237. Sodium 137, potassium 3.8, chloride 103, CO2 28, BUN and creatinine are 4 and 0.88 with a GFR greater than 90. Serum glucose of 105. AST and ALT of 67 and 127, alkaline p hosphatase 172. ASSESSMENT AND PLAN: This is a 47-year-old unfortunate gentleman with a persistent intractable pain due to trigeminal neuralgia, failing medical management. 1. Analgesia. We will continue methadone as per Dr. Leavitt and anticonvulsants as prescribed. I will discontinue phenytoin and Tylenol due to elevation in liver enzymes. 2. Intractable pain due to trigeminal neuralgia. Pain management as above. Further plan as per Dr. Schmidt who will be contacting other neurosurgeons in the state to see if there is a tertiary care [facility] ter for transfer, so that he can have the procedure sooner. He does have an appointment with a neuro surgeon in [place] on 11/27/2017. 3. Anorexia secondary to above. We will consult Gastroenterology for possible PEG tube placement. The patient is aware of risks. 4. Transaminitis. Ultrasound showing fatty liver. No gallstones, likely secondary to medication in duced. I will discontinue Tylenol, discontinue phenytoin at this time.
[2017-11-19] MEDS ORDERED: Baclofen 10 MG TAB PO SCH (09:00)
[2017-11-19] MEDS: Ondansetron ODT 4 MG TAB PO PRN (16:56)
[2017-11-20] MEDS: D5 1/2 NS w/10 mEq KCl 1,000 ML/1,000 ML BAG IV SCH ×4 (01:26→17:05)
[2017-11-20 05:30] LABS: ALT (SGPT) 125 U/L (8-55); AST (SGOT) 49 U/L (5-34); Albumin 3.5 g/dL (3.5-5.0); Alkaline Phosphatase 156 U/L (40-150); Bilirubin, Direct 0.2 mg/dL (0.1-0.3); Bilirubin, Total 0.3 mg/dL (0.2-1.2); Protein, Total 6.5 g/dL (6.0-8.3)
[2017-11-20] MEDS: carBAMazepine 200 MG TAB PO SCH ×2 (08:11→20:01)
[2017-11-20] MEDS: lamoTRIgine 25 MG TAB PO SCH ×2 (08:11→20:01)
[2017-11-20] MEDS: DULoxetine 60 MG CAP PO SCH (08:11)
[2017-11-20] MEDS: METHadone HCl 10 MG TAB PO SCH ×3 (08:12→20:01)
[2017-11-20] MEDS: Enoxaparin Sodium 40 MG/0.4 ML SYRINGE SC SCH (08:13)
--- NOTE | 2017-11-20 11:32 | DIS ---
DATE OF ADMISSION: 11/12/2017 DATE OF DISCHARGE: 11/20/2017 ADMISSION DIAGNOSES: Trigeminal neuralgia, intractable pain, anorexia. DISCHARGE DIAGNOSES: Trigeminal neuralgia, intractable pain, anorexia, malnutrition, transaminitis CONSULTATIONS: Dr. Smith for Neurology, Dr. Jairo Schmidt for Neurosurgery, Dr. Leavitt for pain management. PROCEDURES: IV analgesia, IV fluids. Abdominal ultrasound. HOSPITAL COURSE: This is a 47-year-old gentleman with a history of trigeminal neuralgia for the past few months, who presented to the emergency department with worsening pain and inability to eat and swallow. Prior 2 weeks, he had had increased pain. He had several presentations to the emergency department for pain management and his pain did not relieve. He was seen by Dr. Smith, who adjusted his medications with different anticonvulsants. He was seen in my office and his medications were adjusted as well. He had reached the point where he was unable to eat or swallow or drink and presented to the emergency department and was admitted for IV fluids, IV nutrition, and further evaluation and management. Dr. Smith once again adjusted his medications. He recommended neurosurgery evaluation and he was seen by Dr. Schmidt. Procedures were unable to be performed here locally. Arrangements were looked into in other tertiary care centers. He has an appointment on 11/27/2017 up for a neurosurgeon in the [place] to perform a gamma knife ablation, but the patient was unable to wait for that appointment. He was seen by Dr. Leavitt , who adjusted his medications. The patient had improved pain management with oral methadone and adding Lamictal to his regimen. He is still unable to eat or swallow. It was recommended to look into Dr. Lico Gilliland at [facility], who has performed procedures for ablating a trigeminal nerve in the past and arrangements were made for him to be seen and evaluated by Dr. Lico Gilliland on 11/21. Once the arrangements were made, the patient was stable for discharge home for him to be able to follow up with that appointment on 11/21/2017. DISCHARGE PHYSICAL EXAMINATION: VITAL SIGNS: Temperature 97.6, pulse of 80, respirations 16, blood pressure 119 /80, pulse ox 94% on room air. GENERAL: He is awake and alert, in no acute distress. Speech is clear and more fluid. NECK: Supple. HEENT: He continues to have tenderness on the left side of his face. No rash. HEART: Regular rate and rhythm. LUNGS: Clear. ABDOMEN: Soft, NTND, no masses, no HSM EXTREMITIES: With no edema. NEUROLOGIC: Otherwise intact. LABORATORY DATA: White blood cell count 4,600, hemoglobin and hematocrit 14.7 and 43.1, platelets of 237. Sodium 137, potassium 3.8, chloride 103, CO2 of 28 , BUN and creatinine 4 and 0.88. Serum glucose of 105. Total bilirubin was normal. AST and ALT had decreased down to 49 and 125, alkaline phosphatase decreased to 156. Abdominal ultrasound from 11/18/2017 revealed a fatty infiltrate. DISCHARGE MEDICATIONS: Include Tegretol 400 mg b.i.d., Cymbalta 60 mg daily, Lamictal 25 mg b.i.d., Zofran 4 mg p.r.n. nausea and vomiting, and Protonix 40 mg daily. FOLLOWUP INSTRUCTIONS: Patient to see Dr. Lico Gilliland in [place], scheduled on 12/2017 to discuss definitive treatment for his trigeminal neuralgia. Further medications as per Neurosurgery. Follow up liver function tests MTDD
[2017-11-20] MEDS: Ondansetron ODT 4 MG TAB PO PRN (12:06)
[2017-11-20 22:59] VITALS: BP 126/83; TEMP 98.1
== END 2017-11-20 21:55 | disposition home or self-care (01) | DRG 74 ==
LOC: SCSER 17:51 → OBSVTOIN 18:48 → 2SW 18:48 → T4-B 11-13 14:56
PROVIDERS: ADMIT Family Medicine; ATTEND Family Medicine
DX: G50.0 Trigeminal neuralgia (principal); R63.0 Anorexia; R74.0 Nonspecific elevation of levels of transaminase and lactic acid dehydrogenase [LDH]; R20.0 Anesthesia of skin; K21.9 Gastro-esophageal reflux disease without esophagitis
CPT/HCPCS: 36415; 76700; 80048; 80053; 80076; 80156; 80185; 85025; 85652; 96365; 96374; 96375; J2270; A4216; C9113; J1650; J1885; J2060; J2405; J2550; J7050; Q0162; Q2009

== ENCOUNTER 2020-11-08 17:30 | Outpatient (CLI) | payer BC | END 2020-11-08 17:31 | disposition home or self-care (01) | LOC: SLEEPLAB 17:30 | PROVIDERS: ATTEND Family Medicine | DX: G47.33 Obstructive sleep apnea (adult) (pediatric) (principal); R53.83 Other fatigue; G31.84 Mild cognitive impairment of uncertain or unknown etiology; R51.9 Headache, unspecified; R06.83 Snoring; F41.9 Anxiety disorder, unspecified; G47.00 Insomnia, unspecified | CPT/HCPCS: 95806 ==

== ENCOUNTER 2022-06-14 07:24 | Outpatient (CLI) | payer BC | END 2022-06-14 07:25 | disposition home or self-care (01) | LOC: SCSMRI 07:24 | PROVIDERS: ATTEND Internal Medicine Endocrinology, Diabetes & Metabolism | DX: E16.1 Other hypoglycemia (principal); K86.2 Cyst of pancreas | CPT/HCPCS: 74183 ==

== ENCOUNTER 2022-12-03 11:48 | Emergency (ER) | payer BC ==
[2022-12-03 13:01] LABS: #Basophils 0.1 thou/uL (0.0-0.2); #Eosinphils 0.1 thou/uL (0.0-0.7); #Monocytes 0.7 thou/uL (0.11-0.59); #Neutrophils 4.4 thou/uL (1.40-6.50); %Basophils 1.2 % (0.0-1.0); %Eosinophils 1.9 % (0.0-10.0); %Monocytes 9.6 % (0.0-10.0); %Neutrophils 60.8 % (42.0-75.0); Hemoglobin 14.8 g/dL (14.0-18.0); Mean Corpuscular HGB CONC 35.2 g/dL (32.0-36.0); Mean Corpuscular Hemoglobin 33.1 pg (27.0-31.0); Mean Platelet Volume 9.9 fL (7.4-10.4); Platelet Count 296 10x3/uL (130-400); RBC Distribution Width 12.8 % (11.5-14.5); Red Blood Cell (RBC) Count 4.47 mill/uL (4.70-6.10); White Blood Cell (WBC) Count 7.3 10x3/uL (4.8-10.8)
[2022-12-03 13:35] LABS: ALT (SGPT) 33 U/L (8-55); AST (SGOT) 22 U/L (5-34); Albumin 4.1 g/dL (3.5-5.0); Alkaline Phosphatase 94 U/L (40-110); Anion Gap 12 mmol/L (10-20); BUN (Urea Nitrogen) 12 mg/dL (8.4-25.7); Bilirubin, Total 0.4 mg/dL (0.2-1.2); Calc. Creatinine Clearance 0 mL/min (70-130); Calcium 8.9 mg/dL (7.8-10.44); Carbon Dioxide 24 mmol/L (22-29); Chloride 104 mmol/L (98-107); Estimated GFR 78; Globulin 3.1 g/dL (2.4-3.5); Glucose 98 mg/dL (70-105); Protein, Total 7.2 g/dL (6.0-8.3); Sodium 136 mmol/L (136-145)
[2022-12-03] MEDS ORDERED: Ketorolac Tromethamine 30 MG/ML VIAL ONE (13:35)
[2022-12-03] MEDS ORDERED: Metoclopramide HCl 10 MG/2 ML VIAL ONE (13:35)
== END 2022-12-03 14:55 | disposition home or self-care (01) ==
LOC: ERS 11:48
DX: G43.909 Migraine, unspecified, not intractable, without status migrainosus (principal); K21.9 Gastro-esophageal reflux disease without esophagitis
CPT/HCPCS: 36415; 70450; 80053; 85025; 86140; 96374; 96375; J1885; J2765